=== PATIENT | female | born 1990 | race Hispanic/Latino ===

== ENCOUNTER 2018-07-08 20:56 | Emergency (ER) | payer BC ==
[~2018-07-08 20:56] MED LIST: Iopamidol 300 61% 100 ML VIAL FS ONE
[2018-07-08] MEDS ORDERED: Ketorolac Tromethamine 30 MG/ML VIAL ONE (21:25)
[2018-07-08 21:48] LABS: #Basophils 0.1 thou/uL (0.0-0.2); #Eosinphils 0.1 thou/uL (0.0-0.7); #Lymphocytes 1.8 thou/uL (1.20-3.40); #Monocytes 0.5 thou/uL (0.11-0.59); #Neutrophils 1.7 thou/uL (1.40-6.50); %Basophils 1.9 % (0.0-1.0); %Eosinophils 2.8 % (0.0-10.0); %Monocytes 11.6 % (0.0-10.0); %Neutrophils 40.6 % (42.0-75.0); Hemoglobin 14.2 g/dL (12.0-16.0); Mean Corpuscular HGB CONC 33.7 g/dL (32.0-36.0); Mean Platelet Volume 7.6 fL (7.4-10.4); Platelet Count 246 thou/uL (130-400); RBC Distribution Width 11.1 % (11.5-14.5); Red Blood Cell (RBC) Count 4.56 mill/uL (4.20-5.40); White Blood Cell (WBC) Count 4.2 thou/uL (4.8-10.8)
[2018-07-08 21:55] LABS: BHCG - Serum Negative (NEGATIVE); Pregs Control Background? CLEAR/WHITE (CLR/WHITE); Pregs Control Bar Appear? YES (CONTROL BAR)
[2018-07-08 22:02] LABS: ALT (SGPT) 21 U/L (8-55); AST (SGOT) 21 U/L (5-34); Albumin 4.8 g/dL (3.5-5.0); Alkaline Phosphatase 69 U/L (40-150); Anion Gap 13 mmol/L (10-20); BUN (Urea Nitrogen) 13 mg/dL (7.0-18.7); Bilirubin, Total 0.5 mg/dL (0.2-1.2); Calc. Creatinine Clearance 0 mL/min (70-130); Calcium 9.7 mg/dL (7.8-10.44); Carbon Dioxide 23 mmol/L (22-29); Chloride 107 mmol/L (98-107); Estimated GFR-MDRD Greater than 90; Globulin 3.1 g/dL (2.4-3.5); Glucose 82 mg/dL (70-105); Lipase 30 U/L (8-78); Potassium 3.9 mmol/L (3.5-5.1); Protein, Total 7.9 g/dL (6.0-8.3); Sodium 139 mmol/L (136-145)
--- NOTE | 2018-07-08 23:48 | CT ---
Contrast-enhanced images abdomen pelvis history: Abdominal pain has been ongoing for 4 months. The patient presents to the emergency room dep artment for emergent workup. The lung bases are unremarkable. No evidence of free intraperitoneal air seen. At the liver and spleen are unremarkable. The gallbladder is unremarkable. Pancreas adrenal glands and kidneys are unremarkable. No dilated loops of bowel seen. A moderate amount of stool seen in the colon. The pelvic vessels are distended. There is a area of enhancement seen in the right ovary possibly pre senting a corpus luteal cyst. A small amount of free pelvic fluid seen. IMPRESSION: Constipation with no evidence of bowel obstruction.
== END 2018-07-08 23:57 | disposition home or self-care (01) ==
LOC: SCSER 20:56
DX: R10.13 Epigastric pain (principal); R10.33 Periumbilical pain; Z79.899 Other long term (current) drug therapy
CPT/HCPCS: 74177; 80053; 83690; 84703; 85025; 96361; 96374; J1885; Q9967

== ENCOUNTER 2018-12-14 10:57 | Outpatient (CLI) | payer BC ==
--- NOTE | 2018-12-14 12:23 | ULT ---
PELVIC SONOGRAM WITH TRANSABDOMINAL IMAGING WITH DUPLEX EVALUATION: HISTORY: Pelvic pain. FINDINGS: Urinary bladder is decompressed. Uterus has a homogeneous echotexture and is 8.3 cm length. Endomet rium is0.3 cm. No free fluid. Each ovary has a normal appearance and demonstrates good color and spectral Doppler flow. IMPRESSION: Normal exam. POS: [facility]
== END 2018-12-14 10:58 | disposition home or self-care (01) ==
LOC: SCSULT 10:57
PROVIDERS: ATTEND Internal Medicine
DX: R10.2 Pelvic and perineal pain (principal)
CPT/HCPCS: 76856; 93976